=== PATIENT | female | born 1960 | race Caucasian/White ===

== ENCOUNTER 2023-01-28 13:09 | Outpatient (CLI) | payer OTHER, SELFPAY | END 2023-01-28 13:10 | disposition home or self-care (01) | LOC: ANHAUDASC 13:12 | PROVIDERS: Visit Provider Internal Medicine | DX: H90.42 Sensorineural hearing loss, unilateral, left ear, with unrestricted hearing on the contralateral side (principal); H90.71 Mixed conductive and sensorineural hearing loss, unilateral, right ear, with unrestricted hearing on the contralateral side | CPT/HCPCS: 92557; 92567 ==